=== PATIENT | female | born 1955 | race Caucasian/White ===

== ENCOUNTER 2017-10-02 11:58 | Emergency (ER) | payer MEDICARE, OTHER ==
[~2017-10-02] VITALS: Wt 56.0 kg
[~2017-10-02 11:58] MED LIST: IBUP-1542 PO; METF500T4 PO; SIMV10TA PO
[2017-10-02] MEDS ORDERED: CEPH-443 PO (12:46)
--- NOTE | 2017-10-02 12:48 | QN ---
Documentation Comment My independent concise history is possible infection to the left BKA stump. My pertinent physical exam findings are no obvious signs of cellulitis or abscess at this time although the patient says it was a small amount of clear liquid fluid drainage. The plan is Keflex for 1 week to prevent further infection. ANT QUINTERO MD Oct 02, 2017 12:48
--- NOTE | 2017-10-02 13:06 | ERD ---
ER Documentation Chief Complaint Chief Complaint LEG WOUND CHECK HPI 62-year-old female states that she has a history of "bad bones is acute" resulting in amputation of the left lower extremity, [facility]TWAN in November 2016 at [facility] is coming in with a 8 day history of pain at the lateral aspect of the tip of the amputation site. She states that the pain started after she try to walk more, the pain is localized, she feels a burning type of sensation and reports clear drainage. She has not had any fevers chills. She denies trauma. ROS All systems reviewed and are negative except as per history of present illness. Medications Home Meds Active Scripts Cephalexin* (Keflex*) 500 Mg Capsule, 500 MG PO QID for 7 Days, CAP Prov:JESENIA SCHULTZ PA-C 10/02/17 Ibuprofen* (Motrin*) 600 Mg Tab, 600 MG PO Q6H Y for PAIN AND OR ELEVATED TEMP, #30 TAB Prov:EUGENIA MCKEON CERTIFIED PERFORMANCE TECHNOLOGIST 02/29/16 Reported Medications Simvastatin* (Zocor*) 10 Mg Tablet, 10 MG PO HS, TAB 11/21/14 Metformin* (Glucophage*) 500 Mg Tab, 500 MG PO WITH BREAKFAST, TAB 11/21/14 Allergies Allergies: Coded Allergies: No Known Allergy (Unverified , 10/02/17) PMhx/Soc History of Surgery: Yes (left metatarsals amputation 11/2016) Anesthesia Reaction: No Hx Neurological Disorder: No Hx Respiratory Disorders: No Hx Cardiac Disorders: Yes (hyperlipidemia) Hx Psychiatric Problems: No Hx Miscellaneous Medical Probl: Yes (DM) Hx Alcohol Use: No Hx Substance Use: No Hx Tobacco Use: No Smoking Status: Never smoker Physical Exam Vitals Vital Signs Date Time Temp Pulse Resp B/P Pulse Ox O2 Delivery O2 Flow Rate FiO2 10/02/17 12:03 97.6 82 17 156/78 98 Physical Exam General: Well-developed, well-nourished. The patient appears in no acute distress. HEENT: Head is normocephalic, atraumatic. No scleral icterus. Neck: Supple. Nontender. Lungs: Clear to auscultation. Normal air movement. Heart: Regular rate and rhythm. S1 and S2 are normal. No murmurs, gallops, or rubs. Abdomen: Soft, nontender, nondistended. Bowel sounds are normoactive. Extremities: There is a stump of the left lower extremity from a BKA. The site is intact, it is tender to palpation but there is no warmth, no erythema or drainage. Neurologic: Alert and oriented 3. No focal deficits. Skin: Normal turgor. No rash or lesions. Procedures/MDM 62-year-old female presents to the emergency room with a BKA wound check, she reports pain at the site with clear drainage. The site does not appear to be infected however do feel is appropriate to start the patient on antibiotics given her history of drainage, and history of diabetes. Cannot rule out early infection at this time, I doubt osteomyelitis, DVT or any further limb threatening process. She will be started on Keflex, will be advised to follow- up with amputation prevention center. Patient's blood pressure was elevated (>120/80) but appears stable without evidence of hypertension emergency or urgency. The patient was counseled about the risks of hypertension and urged to pursue outpatient monitoring and therapy within a week with their primary care physician. The case was reviewed and discussed with Dr. Bustos who agrees with the plan of care as appropriate. Departure Diagnosis: Primary Impression: Pain of amputation stump of left lower extremity Condition: Good Patient Instructions: What to Expect: The Months After Amputation Surgery Referrals: [facility] Additional Instructions: Llame al doctor SAM y shruti mckenzie JOSÉ PARA DENTRO DE 1-2 MKCEON.Dgale a la secretaria que nosotros le instruimos hacer esta josé.Avise o llame si lewis condicin se empeora antes de la josé. Regresa aqui si peor o no mejor. JESENIA SCHULTZ PA-C Oct 02, 2017 13:06
== END 2017-10-02 14:00 | disposition home or self-care (01) ==
LOC: FTE 11:58
DX: T87.89 Other complications of amputation stump (principal); E11.9 Type 2 diabetes mellitus without complications; Y82.9 Unspecified medical devices associated with adverse incidents; Z79.84 Long term (current) use of oral hypoglycemic drugs
CPT/HCPCS: 99283